=== PATIENT | male | born 1980 | race American Indian/Alaskan Native ===

== ENCOUNTER 2019-05-04 01:25 | Emergency (ER) | payer SELFPAY ==
[2019-05-04 01:33] VITALS: BP 139/74
--- NOTE | 2019-05-04 05:30 | Emergency Department Report ---
Chief Complaint: Sore Throat Stated Complaint: HEADACHE, DIFFICULTY IN BREATHING - HPI History of Present Illness: 38-year-old -[place] male patient without significant past medical history presents with complaints of cough, sore throat, body aches, and headache for the past 4 days. He denies any hemoptysis, shortness of breath, chest pain, nausea/vomiting/diarrhea, rash, or fever/chills/sweats. He rates his throat pain as a 7/10 in severity and states it worsens with swallowing. He states TheraFlu is not helping with his symptoms. He denies any travel outside the [place]/contact with individuals who have traveled outside the [place]/contact with known/suspected covid19 patients. - Exam Vital Signs: Vital Signs 05/04/19 01:31 Temperature 98.9 F Pulse Rate 61 Respiratory 16 Rate Blood Pressure 139/74 O2 Sat by Pulse 97 Oximetry MSE screening note: Focused history and physical exam performed. Due to findings the following was ordered: ED Medical Decision Making - Medical Decision Making Patient here with cough and sore throat. Rapid strep is negative. Lungs are clear on exam. Patient is well-appearing and vitals are normal. Symptoms and exam appear to be consistent with viral pharyngitis. Recommend conservative treatment with [id number] medications as needed for his symptoms. Also recommend patient follow-up with his primary care provider or in urgent care. Discussed strict return precautions in detail with patient who verbalizes understanding. ED Disposition for MSE Clinical Impression: Acute viral pharyngitis Disposition: MED SCREENING EXAM-LEFT Is pt being admited?: No Condition: Stable Instructions: Pharyngitis (ED) Prescriptions: Benzonatate 200 mg PO TID PRN #30 capsule PRN Reason: Cough Loratadine [Claritin] 10 mg PO QDAY 10 Days #10 tablet Ibuprofen [Motrin 800 MG tab] 800 mg PO Q8HR PRN #21 tablet PRN Reason: pain Referrals: PRIMARY CARE,MD [Primary Care Provider] - 2-3 Days Forms: Accompanied Note, Work/School Release Form(ED) ED General adult EXAM - General Limitations: No Limitations - Head Head exam: Positive: atraumatic, normocephalic - ENT ENT exam: Positive: mucous membranes moist, other (Mild erythema noted of posterior pharynx without axillary mass or exudate) - Neck Neck exam: Positive: normal inspection, full ROM. Negative: tenderness, lymphadenopathy - Respiratory Respiratory exam: Positive: normal lung sounds bilaterally. Negative: respiratory distress - Cardiovascular Cardiovascular Exam: Positive: regular rate, normal rhythm, normal heart sounds - Neurological Neurological exam: Positive: alert, oriented X3 - Psychiatric Psychiatric exam: Positive: normal affect, agitated - Skin Skin exam: Positive: warm, dry, intact, normal color. Negative: rash
== END 2019-05-04 05:50 | disposition left against medical advice (07) ==
LOC: ED 01:25
DX: J02.8 Acute pharyngitis due to other specified organisms (principal); B97.89 Other viral agents as the cause of diseases classified elsewhere
CPT/HCPCS: 87116; 87430